=== PATIENT | female | born 1965 | race Caucasian/White ===

== ENCOUNTER 2025-06-16 10:17 | Inpatient (IN) | payer MEDICAID ==
[2025-06-14 12:22] LABS: Hematocrit 44.5 % (36.0-46.0); Hemoglobin 14.7 g/dL (12.2-16.2); Mean Corpuscular Hemoglobin 30.9 pg (28.0-32.0); Mean Corpuscular Volume 93.3 fL (80.0-100.0); Nucleated Red Blood Cells % 0.1 %
[2025-06-14 12:30] LABS: Urine Protein, UAD Negative (Negative)
[2025-06-14 12:39] LABS: INR 1.03 (0.9-1.15); Partial Thromboplastin Time 28.5 SEC (24.5-34.5); Prothrombin Time 10.9 sec (9.3-11.8)
[2025-06-14 13:35] LABS: Albumin 4.4 g/dL (3.2-4.8); Anion Gap 12 (5-15); Calcium 9.5 mg/dL (8.7-10.4); Carbon Dioxide 28 mmol/L (20-31); Chloride 101 mmol/L (98-107); Glucose 91 mg/dL (74-106); Potassium 4.0 mmol/L (3.5-5.1); Sodium 141 mmol/L (136-145); Total Protein 7.6 g/dL (5.7-8.2)
[2025-06-14 13:36] LABS: Alanine Aminotransferase < 9 U/L (7-40); Alkaline Phosphatase 140 U/L (46-116); BUN/Creatinine Ratio 7.4 (10.0-20.0); Bilirubin, Total 0.5 mg/dL (0.2-1.0); Blood Urea Nitrogen < 5 mg/dL (9-23)
[~2025-06-16] VITALS: Ht 160 cm; Wt 54.7 kg
[~2025-06-16 10:17] MED LIST: GLYCOPYRROLATE 0.2 MG/ML 1ML VIAL ONE; KETAMINE 50mg/ML 1ml syringe ONE; KETOROLAC TROMETH 30 MG/ML 1ML VIAL ONE; LEVO75TA6 PO; MIDAZOLAM HCL 2MG/2ML 2ml VIAL (1mg/ml) ONE; MORPHINE SULF PF 5 MG/10 ML VIAL ONE; NAPR-505 PO; ONDANSETRON HCL 4 MG/2 ML VIAL ONE; PROPOFOL 10 MG/ML 20 ML IV ONE; SERT50TA PO; fentaNYL CITRATE 100 MCG/2 ML VL ONE
[2025-06-16] MEDS: SODIUM CHLORIDE 0.9% 1,000 ML IV SCH (11:30)
[2025-06-16] MEDS: VANCOMYCIN HCL 1000 MG VL ONE (12:24)
--- NOTE | 2025-06-16 13:38 | DVHOP2 ---
Operative Report - 2 Report Details Date: 06/16/25 Preop Diagnosis: Right hip degenerative arthritis Postop Diagnosis: Right hip degenerative arthritis Surgeon: Linda Zhang MD Criminal Analyst: Jean DEJESUS Anesthesiologist: Claudio Anesthesia: Regional Drains: Koko closed wound suction Implant: [employer] Z one stem size three standard offset, 32 ceramic head-3.5 neck length, 48 acetabular shell G7, flat polyethylene liner Consent: The patient was informed of the risks and benefits of the procedure. These in clude but are not limited to complications of anesthesia, postoperative infection, incomplete relief of symptoms, recurrence of symptoms, damage to blood vessels, nerves and tendons, deep venous thrombosis, pulmonary embolism and possible need for repeat surgery in the future. Complications: None Estimated Blood Loss: 200 cc Fluids: See anesthesia record Findings: Denuded cartilage with eburnated bone, osteophytes Indications for Surgery: Right hip degenerative arthritis with severe pain and functional impairment despite nonoperative management Name of Procedure Performed Right total hip arthroplasty Procedure Details Procedure Details: The patient was brought to the operating room and given spinal anesthetic with adequate analgesia obtained. The patient was positioned lateral decubitus with the operative side up, stabilized with hip positioners. Axillary roll applied and lower extremities well-padded. Preop patient received IV Ancef, cefepime and IV tranexamic acid. Surgical timeout was performed verifying patient, laterality and procedure. The hip and lower extremity were prepped and draped in sterile fashion. Incision was made over the greater trochanter. Subcutaneous dissection and hemostasis were performed with Bovie and aqua mantis. I identified the fascia which was incised with Bovie and Charnley retractor inserted. I identified the gluteus medius that was split at the junction of its anterior and middle thirds with Bovie then incised off the ant erior greater trochanter. I incised the anterior gluteus minimus which was elevated off the capsule. I elevated the reflected head of the rectus. I then performed anterior capsulectomy with Bovie. I extended capsular incision posterior medially and superior laterally. The head was dislocated. Femoral neck cut was made with saw and head removed. Head diameter was calipered on the back table. I adjusted retractors to expose the acetabulum. I circumferentially removed labral tissue with Bovie. I removed foveal tissue with Bovie, curette and rongeur. I then began reaming sequentially paying attention to inclination and version as I went. I trialed which was stable so acetabular implant was brought into the field and tapped into the acetabulum with good fixation achieved. I then brought up the flat liner which was spun to make sure there was no soft tissue entrapment then tapped in and stability verified. I then brought my attention to the proximal femur. The leg was placed in the sterile bag anteriorly. I cleaned up soft tissue at the greater trochanter shoulder with Bovie. I then used a rongeur to clip the lateral neck. I then used a box osteotome, canal finder and lateralizing rasp. I sequentially broached to size 3. I revised the femoral neck cut with calcar planer. I trialed with a [0] neck length and [32] head which was stable. Intraoperative AP pelvis x-ray was obtained to verify length, offset and implant size. The hip was dislocated. Neck and head trial removed. Broach was removed. I tapped in the femoral implant with good fixation achieved. I again trialed the femoral heads and decided on the-3.5 neck length. I cleaned and dried the Zazueta taper and tapped on the ceramic head. The hip was again reduced and tested for stability which was good. I irrigated with bacisurge. I placed a 2 grams of vancomycin in the deep and superficial wound. I repaired the minimus and medius to the anterior greater trochanter with #[5] FiberWire in running fashion . I oversewed the repair with 0 Vicryl. I repaired the fascia with #1 Ethibond interrupted [id number]. Deep subcutaneous tissue was closed with 0 Vicryl. Superficial subcutaneous tissue was closed with 2-0 Vicryl. The skin was closed with rj. I then applied the Koko closed wound suction. Patient tolerated the procedure well and was brought to the recovery room in stable condition. Condition Stable Disposition Still a Patient LINDA ZHANG MD Jun 16, 2025 13:38
--- NOTE | 2025-06-16 13:40 | DVH ---
EXAM: XY PELVIS AP CLINICAL INDICATION: RT HIP ORIF TECHNIQUE: XY PELVIS AP Comparison: XR HIP RIGHT 2-3 VIEW on DOS: 04/21/25 FINDINGS/IMPRESSION: Right total hip arthroplasty. No acute fracture
[2025-06-16 13:45] VITALS: PULSE 77; RESP 14; O2SAT 97
[2025-06-16] MEDS ORDERED: ONDANSETRON HCL 4 MG/2 ML VIAL IV PRN ×2 (13:45→14:00)
[2025-06-16] MEDS ORDERED: ceFAZolin 2 GM/D5W50ml 50 ML IV SCH ×2 (14:00→20:00)
[2025-06-16] MEDS: ACETAMINOPHEN IV 1000 MG/100ML (10MG/ML) IV ONE (14:00)
[2025-06-16] MEDS ORDERED: NALOXONE HCL 0.4 MG/ML VIAL IV PRN (14:00)
[2025-06-16] MEDS: diphenhydrAMINE HCL 50 MG/1 ML VL IV PRN (14:39)
[2025-06-16] MEDS: ceFAZolin 2 GM/D5W50ml 50 ML IV ONE (14:39)
[2025-06-16] MEDS: TRANEXAMIC ACID 20 ML ONE (14:39)
[2025-06-16] MEDS: CEFEPIME 1GM/50ML 50 ML IV ONE (14:40)
[2025-06-16] MEDS: SUCCINYLCHOLINE CHLORIDE 20 MG/ML 10ML VIAL IV ONE (14:40)
[2025-06-16 15:00] VITALS: PULSE 76; RESP 15; O2SAT 97
[2025-06-16 17:34] VITALS: PULSE 71; RESP 20; O2SAT 97
[2025-06-16 17:36] VITALS: BP 124/58; PULSE 66; RESP 16; TEMP 97.2; O2SAT 93
--- NOTE | 2025-06-16 17:56 | DVH ---
CLINICAL INDICATION: postop TECHNIQUE: 1 radiographic views of the AP pelvis were obtained. Comparison: XY PELVIS AP on DOS: 06/16/25 FINDINGS/IMPRESSION: Bipolar right hip prosthesis in place. Severe osteoarthritis left hip with complete loss of the superior and axial joint space with sclerotic changes to the opposing articular surfaces sclerotic changes to the femoral head and some flattening and subchondral cysts suggesting osteonecrosis. A PARSONS
[2025-06-16] MEDS: KETOROLAC TROMETH 30 MG/ML 1ML VIAL IV SCH (18:05)
[2025-06-16] MEDS: ACETAMINOPHEN 325 MG TAB PO SCH (18:05)
[2025-06-16] MEDS: ceFAZolin 2 GM/D5W50ml 50 ML IV SCH (19:54)
[2025-06-16 20:00] VITALS: PULSE 80; RESP 19; O2SAT 96
[2025-06-16 21:00] VITALS: BP 114/74; PULSE 76; RESP 19; TEMP 97.9; O2SAT 96
[2025-06-16] MEDS: PREGABALIN 25 MG CAP PO SCH (21:53)
[2025-06-17] VITALS (7 sets, daily range): BP systolic 99–138; BP diastolic 56–80; PULSE 60–80; RESP 15–19; TEMP 36.6; O2SAT 92–97
[2025-06-17] MEDS: LEVOTHYROXINE SODIUM 25 MCG TAB PO SCH (06:10)
[2025-06-17 06:31] LABS: Hematocrit 33.4 % (36.0-46.0); Hemoglobin 11.3 g/dL (12.2-16.2); Mean Corpuscular Hemoglobin 32.0 pg (28.0-32.0); Mean Corpuscular Volume 94.5 fL (80.0-100.0); Nucleated Red Blood Cells % 0.0 %
[2025-06-17 06:45] LABS: Chloride 104 mmol/L (98-107); Potassium 4.0 mmol/L (3.5-5.1); Sodium 141 mmol/L (136-145)
[2025-06-17 06:46] LABS: Anion Gap 11 (5-15); Calcium 8.9 mg/dL (8.7-10.4); Carbon Dioxide 26 mmol/L (20-31)
[2025-06-17 06:51] LABS: BUN/Creatinine Ratio 8.6 (10.0-20.0)
[2025-06-17 06:56] LABS: Blood Urea Nitrogen 6 mg/dL (9-23); Glucose 120 mg/dL (74-106)
[2025-06-17] MEDS: APIXABAN 2.5 MG TAB PO SCH (10:04)
[2025-06-17] MEDS: SERTRALINE HCL 50 MG TAB PO SCH (10:04)
[2025-06-17] MEDS: KETOROLAC TROMETH 30 MG/ML 1ML VIAL IV PRN (12:56)
--- NOTE | 2025-06-17 15:16 | DVHDS2 ---
Discharge Summary Date of Admission Jun 16, 2025 at 14:11 Date of Discharge: Jun 17, 2025 Labs/Diagnostic Data: Laboratory Results Test 06/17/25 05:15 06/14/25 11:53 White Blood Count 9.7 10^3/uL (4.4-10.8) Red Blood Count 3.53 10^6/uL (4.0-5.20) Hemoglobin 11.3 g/dL (12.2-16.2) Hematocrit 33.4 % (36.0-46.0) Mean Corpuscular Volume 94.5 fL (80.0-100.0) Mean Corpuscular Hemoglobin 32.0 pg (28.0-32.0) Mean Corpuscular Hemoglobin Concent 33.8 g/dL (32.0-36.0) Red Cell Distribution Width 13.6 % (11.8-14.3) Platelet Count 286 10^3/uL (140-450) Mean Platelet Volume 6.8 fL (6.9-10.8) Neutrophils (%) (Auto) 83.1 % (37.0-80.0) Lymphocytes (%) (Auto) 9.7 % (10.0-50.0) Monocytes (%) (Auto) 7.0 % (0.0-12.0) Eosinophils (%) (Auto) 0.0 % (0.0-7.0) Basophils (%) (Auto) 0.2 % (0.0-2.0) Neutrophils # (Auto) 8.1 10 ^3/uL (1.6-8.6) Lymphocytes # (Auto) 0.9 10 ^3/uL (0.4-5.4) Monocytes # (Auto) 0.7 10 ^3/uL (0-1.3) Eosinophils # (Auto) 0 10 ^3/uL (0-0.8) Basophils # (Auto) 0 10 ^3/uL (0-0.2) Nucleated Red Blood Cells 0.0 % Sodium Level 141 mmol/L (136-145) Potassium Level 4.0 mmol/L (3.5-5.1) Chloride Level 104 mmol/L (98-107) Carbon Dioxide Level 26 mmol/L (20-31) Anion Gap 11 (5-15) Blood Urea Nitrogen 6 mg/dL (9-23) Creatinine 0.70 mg/dL (0.550-1.02) Glomerular Filtration Rate Calc 99 mL/min (>90) BUN/Creatinine Ratio 8.6 (10.0-20.0) Serum Glucose 120 mg/dL (74-106) Calcium Level 8.9 mg/dL (8.7-10.4) Prothrombin Time 10.9 sec (9.3-11.8) Prothrombin Time INR 1.03 (0.9-1.15) Activated Partial Thromboplast Time 28.5 SEC (24.5-34.5) Urine Color Colorless (Yellow) Urine Clarity Clear (Clear) Urine pH 6.5 (5.0-9.0) Urine Specific Metter 1.006 (1.001-1.035) Urine Protein Negative (Negative) Urine Ketones Negative (Negative) Urine Blood 1+ /uL (Negative) Urine Nitrite Negative (Negative) Urine Bilirubin Negative (Negative) Urine Urobilinogen Normal mg/dL (Negative) Urine Leukocyte Esterase Negative /uL (Negative) Urine RBC 3 /hpf (0 - 4) Urine Microscopic WBC 1 /HPF (0-5) Urine Squamous Epithelial Cells Few /hpf (<5) Urine Bacteria Few /hpf (None Seen) Urine Glucose Normal mg/dL (Normal) Total Bilirubin 0.5 mg/dL (0.2-1.0) Aspartate Amino Transferase (AST) 29 U/L (13-40) Alanine Aminotransferase (ALT) < 9 U/L (7-40) Alkaline Phosphatase 140 U/L (46-116) Total Protein 7.6 g/dL (5.7-8.2) Albumin 4.4 g/dL (3.2-4.8) Other Laboratory Tests 06/17/25 05:15 Brief Hx & Hospital Course: Patient was brought to the hospital yesterday to undergo a right total hip arthroplasty. She tolerated the procedure well without complications and was kept overnight for postop observation. Patient has remained medically stable denying any overnight events and reports that she was able to get up and walk with the help of physical therapy and her walker and was able to get down the boucher around the nurses station and back to her room with some postoperative hip pain that is otherwise manageable. Patient was otherwise feeling well denying any other complaints or concerns during my evaluation and is ready to go home. Condition at Discharge: Stable Final Diagnosis/Problems List Right hip degenerative arthritis Discharge Disposition: Home Discharge Instruct/Medications Diet: Regular Activity: See Comment Activity comment: Patient instructed to remain weight-bearing as tolerated with the assistance of a walker Follow Up/Referral: Patient instructed follow up with our office in 10-14 days for her 1st postoperative evaluation Medications: Rx sent via our outpatient EMR system Miscellaneous Medications Levothyroxine Sodium (Levothyroxine Sodium), 75 MCG PO, (Reported) Naproxen Sodium (Aleve), 220 MG PO, (Reported) Sertraline Hcl (Zoloft), 50 MG PO, (Reported) Discharge Statement: "Patient was advised to return to the ER or call 911 if any headaches, dizziness, shortness of breath, chest pain, abdominal pain, bleeding, fevers, or worsening of medical condition. Patient was counseled about treatment plan, medications, possible side effects, patientverbalized understanding. All questions were answered to the best of my ability. This discharge took greater then 30 minutes in planning, reviewing documentation, counseling the patient, and discussing with other team members." ASSESSMENT ASSESSMENT Assessment Right hip degenerative arthritis SVETLANA ALCOCER Jun 17, 2025 15:16
--- NOTE | 2025-06-17 15:20 | DVHPN2 ---
Progress Note - Dictate Date Seen: Jun 17, 2025 Medical Necessity Reason Pt with a Central, PICC or Fol: No Subjective Patient was lying comfortably in bed during my evaluation reports some postoperative hip pain that is being well managed with the help of pain medication. Patient reports that she was able to get up and walk with the help of physical therapy and her walker and was able to get down the boucher around the nurses station and back to her bed with some postoperative hip pain that is otherwise tolerable. Patient has remained medically stable denying any other complaints or concerns during my evaluation and is ready to go home. vital signs Vital Sign Date Time Temp Pulse Resp B/P (MAP) Pulse Ox O2 Delivery O2 Flow Rate FiO2 06/17/25 12:57 97.7 06/17/25 12:40 71 16 109/68 (82) 96 06/17/25 08:00 Room Air* 0 21 Total Intake and Output 06/16/25 06/16/25 06/17/25 15:00 23:00 07:00 Intake Total 220 ml 400 ml 1700 ml Balance 220 ml 400 ml 1700 ml medications Current Medications Medications Dose Ordered Sig/Gina Route Start Time Stop Time Status Last Admin Dose Admin Sertraline HCl 50 mg DAILY PO 06/17/25 10:00 06/17/25 10:04 50 MG Levothyroxine Sodium 75 mcg QAM@0600 PO 06/17/25 06:00 06/17/25 06:10 75 MCG Pregabalin 50 mg BID PO 06/16/25 22:00 06/17/25 10:04 50 MG Apixaban 2.5 mg BID PO 06/17/25 10:00 07/22/25 09:59 06/17/25 10:04 2.5 MG Sodium Chloride 1,000 ml @ 125 mls/hr Q8H IV 06/16/25 11:30 06/17/25 11:30 125 MLS/HR Acetaminophen 650 mg Q6HP PO 06/16/25 18:00 06/17/25 12:57 650 MG Ketorolac Tromethamine 15 mg Q6HR IV 06/16/25 18:00 06/21/25 17:59 06/17/25 06:11 15 MG Oxycodone HCl 10 mg Q4HP PRN PO 06/16/25 11:30 06/17/25 10:06 10 MG Diphenhydramine HCl 25 mg Q4HP PRN IV 06/16/25 14:00 06/16/25 14:39 25 MG Ondansetron HCl 4 mg Q4HP PRN IV 06/16/25 14:00 Ketorolac Tromethamine 30 mg Q6HP PRN IV 06/16/25 14:00 06/21/25 13:59 06/17/25 12:56 30 MG objective A&O x4 in no acute distress Hip range of motion grossly limited with pain on movement Koko dressing clean, dry, intact, and maintaining suction No distal edema or calf tenderness to palpation Neurovascularly intact with cap refill less than 2 seconds laboratory and microbiology Laboratory Tests 06/17/25 05:15 Test 06/17/25 05:15 Range/Units Serum Glucose 120 H 74-106 mg/dL Assessment/Plan Patient to be discharged home and advised to remain weight-bearing as tolerated with the assistance of a walker. I also advised the patient to follow up with our office in 10-14 days for her 1st postoperative evaluation and to maintain her dressings clean, dry, intact, and maintaining suction to call our office if she has any further questions or concerns. Rx sent via our outpatient EMR system. Patient understood and agreed. Plan discussed with: Patient SVETLANA ALCOCER Jun 17, 2025 15:20
== END 2025-06-17 19:30 | disposition home or self-care (01) | DRG 324 ==
LOC: SUR 10:17 → OVERFLOW 14:11 → TELE-WESTW 17:37
PROVIDERS: ADMIT Family Medicine; ATTEND Family Medicine
PROC: 0SR904A Replacement of Right Hip Joint with Ceramic on Polyethylene Synthetic Substitute, Uncemented, Open Approach (ICD-10-PCS; principal; 2025-06-16 11:51)
DX: M16.11 Unilateral primary osteoarthritis, right hip (principal)
CPT/HCPCS: 36415; 72170; 80048; 80053; 81001; 85025; 85610; 85730; 86850; 86900; 86901; 97162; A4565; G0378; J0330; J1885; J2250; J2405; J2704